=== PATIENT | female | born 1995 | race Caucasian/White ===

== ENCOUNTER 2017-02-10 19:47 | Emergency (ER) | payer OTHER ==
[2017-02-10] MEDS ORDERED: NO HOME MEDICATION (20:27)
== END 2017-02-10 22:24 ==
LOC: EDMED 19:47
DX: S06.0X0A Concussion without loss of consciousness, initial encounter (principal); S13.4XXA Sprain of ligaments of cervical spine, initial encounter; V49.40XA Driver injured in collision with unspecified motor vehicles in traffic accident, initial encounter; Y92.410 Unspecified street and highway as the place of occurrence of the external cause
CPT/HCPCS: J1885; J2405